=== PATIENT | male | born 1985 | race Caucasian/White ===

== ENCOUNTER 2017-12-13 11:27 | Emergency (ER) | payer OTHER ==
[~2017-12-13] VITALS: Ht 157.5 cm; Wt 112.0 kg
[~2017-12-13 11:27] MED LIST: CLON2TAB PO; SERT50TA PO
[2017-12-13 11:40] VITALS: BP 133/65
--- NOTE | 2017-12-13 11:45 | NUR ---
PT TO BED 3.
--- NOTE | 2017-12-13 11:50 | NUR ---
PATIENT PRESENTS TO ED WITH C/O DIZZINESS AND RIGHT FRONTAL/PARIETAL HEADACHE SINCE MONDAY; DENIES SYNCOPE OR LOC; PT ALSO C/O DECREASED HEARING TO RIGHT EAR HX NONE EXCEDRIN TAKEN AT 1030 WITH NO RELIEF; DENIES N/V/D; SKIN IS PINK/WARM/DRY; AAOX4 WITH EVEN AND STEADY GAIT; LUNGS CLEAR BL; HR EVEN AND REGULAR; PT DENIES ANY FEVER, CP, SOB, OR COUGH AT THIS TIME; PATIENT STATES PAIN OF 8/10 AT THIS TIME; VSS; PATIENT POSITIONED FOR COMFORT; HOB ELEVATED; BEDRAILS UP X2; BED DOWN. ER MD MADE AWARE OF PT STATUS.
--- NOTE | 2017-12-13 11:53 | NUR ---
DR PALACIOS EVALUATING AAO PT AT BEDSIDE
--- NOTE | 2017-12-13 12:05 | NUR ---
PT TAKEN OFF THE UNIT FOR CT VIA WHEEL CHAIR BY GUNITE NOZZLE OPERATOR
[2017-12-13] MEDS ORDERED: NACL 0.9% 1,000 ML IV ONE (12:10)
[2017-12-13 12:14] LABS: BASOPHILS # (AUTO) 0.2 K/uL (0.00-0.22); BASOPHILS % (AUTO) 2.3 % (0.0-2.0); EOSINOPHILS # (AUTO) 0.7 K/uL (0-0.4); EOSINOPHILS % (AUTO) 9.2 % (0.0-4.0); HEMATOCRIT 45.4 % (36-52); HEMOGLOBIN 15.1 g/dL (12.0-18.0); LYMPHOCYTES # (AUTO) 1.6 K/uL (2.0-11.5); LYMPHOCYTES % (AUTO) 21.7 % (20.5-51.1); MEAN CORPUSCULAR HEMOGLOBIN 29 pg (27-31); MEAN CORPUSCULAR HGB CONC 33 g/dL (33-37); MEAN CORPUSCULAR VOLUME 88 fL (80-94); MONOCYTES # (AUTO) 0.3 K/uL (0.8-1.0); MONOCYTES % (AUTO) 4.5 % (1.7-9.3); NEUTROPHILS # (AUTO) 4.4 K/uL (1.8-7.7); NEUTROPHILS % (AUTO) 62.3 % (42.2-75.2); PLATELET COUNT (AUTO) 203 K/uL (140-450); RED BLOOD CELL COUNT(AUTO) 5.17 MIL/uL (4.20-6.10); RED CELL DISTRIBUTION WIDTH 12.1 % (11.6-13.7); WHITE BLOOD COUNT (AUTO) 7.2 K/uL (4.8-10.8)
[2017-12-13 12:15] LABS: CARBON DIOXIDE 26.1 mmol/L (21-32); POTASSIUM 4.1 mmol/L (3.5-5.1)
[2017-12-13 12:21] LABS: ALBUMIN 3.8 g/dL (3.4-5.0); TOTAL BILIRUBIN 0.5 mg/dL (0.0-1.0)
[2017-12-13 12:23] LABS: PROTHROMBIN TIME 10.7 secs (10.8-13.4)
[2017-12-13 13:34] VITALS: BP 126/61
--- NOTE | 2017-12-13 13:34 | NUR ---
Patient discharged with v/s stable. Written and verbal after care instructions given and explained. Patient verbalized understanding. Ambulatory with steady gait. All questions addressed prior to discharge. Advised to follow up with PMD.
== END 2017-12-13 13:34 | disposition home or self-care (01) ==
LOC: MED 11:27
DX: R51 Headache (principal); F19.10 Other psychoactive substance abuse, uncomplicated; Z79.899 Other long term (current) drug therapy
CPT/HCPCS: 36415; 70450; 80053; 83880; 84484; 85025; 85610; 85730; 96360; 96361; 99285; J7030

== ENCOUNTER 2018-05-07 05:25 | Emergency (ER) | payer OTHER ==
[~2018-05-07] VITALS: Ht 188 cm; Wt 104.3 kg
[2018-05-07 05:28] VITALS: BP 139/103
--- NOTE | 2018-05-07 05:34 | NUR ---
PT TAKEN TO BED 8
--- NOTE | 2018-05-07 05:35 | NUR ---
33/M CAME IN ED, C/O SOB/CONGESTION, X1 HR. PT REPORTS SMOKING MARIJUANA 1 HR AGO. PT REPORTS PRODUCTIVE COUGH WITH WHITE MUCUS. HX PANIC ATTACKS. NKA. PT DENIES N/V/D; SKIN IS INTACT, PINK/WARM/DRY; AAOX4, PERRL, WITH EVEN AND STEADY GAIT; LUNGS CLEAR BL, BREATHING UNLABORED; HR EVEN AND REGULAR, BL PERIPHERAL PULSES PRESENT; BS ACTIVE X4, NO TENDERNESS TO PALPATION; PT DENIES ANY FEVER, CP AT THIS TIME; PT STATES 0/10 PAIN AT THIS TIME; VSS; PATIENT POSITIONED FOR COMFORT; HOB ELEVATED; BEDRAILS UP X2; BED DOWN. ER MADE AWARE.
--- NOTE | 2018-05-07 05:41 | NUR ---
Dr. Armstrong evaluating patient at bedside.
[2018-05-07 05:51] VITALS: BP 139/89
--- NOTE | 2018-05-07 05:51 | NUR ---
Patient discharged with v/s stable. Written and verbal after care instructions given and explained. Patient alert, oriented and verbalized understanding of instructions. Ambulatory with steady gait. All questions addressed prior to discharge. ID band removed. Patient advised to follow up with PMD. Rx of ATARAX 25 MG given. Patient educated on indication of medication including possible reaction and side effects. Opportunity to ask questions provided and answered.
== END 2018-05-07 05:51 | disposition home or self-care (01) ==
LOC: MED 05:25
DX: F41.9 Anxiety disorder, unspecified (principal); F12.10 Cannabis abuse, uncomplicated
CPT/HCPCS: 99284

== ENCOUNTER 2018-06-26 06:08 | Emergency (ER) | payer SELFPAY ==
[~2018-06-26] VITALS: Ht 188 cm; Wt 108.4 kg
[2018-06-26 06:11] VITALS: BP 132/64
--- NOTE | 2018-06-26 06:11 | NUR ---
TO BED # 11 AMB, REPORT GIVEN TO LAURIE CHAO
--- NOTE | 2018-06-26 06:11 | NUR ---
PT PRESENTS TO ED WITH SOAR THROAT, NON-PRODUCTIVE COUGH, BODY ACHES, AND RUNNY NOSE X1 DAY. PT IS AFEBRILE. LUNGS CLEAR BILAT. NO EXUDATE IN PHARYNX. VSS. A&OX4. POSITIONED IN BED FOR COMFORT. ER MD AWARE. CONTINUE TO MONITOR.
--- NOTE | 2018-06-26 06:20 | NUR ---
Dr. Armstrong evaluating patient at bedside.
[2018-06-26] MEDS ORDERED: KETOROLAC 60 MG/2 ML VIAL IM ONE (06:25)
[2018-06-26 06:40] VITALS: BP 132/64
--- NOTE | 2018-06-26 06:40 | NUR ---
DCPatient discharged with v/s stable. Written and verbal after care instructions given and explained. Patient alert, oriented and verbalized understanding of instructions. Ambulatory with steady gait. All questions addressed prior to discharge. ID band removed. Patient advised to follow up with PMD. Rx of Motrin and Prednisone given. Patient educated on indication of medication including possible reaction and side effects. Opportunity to ask questions provided and answered.
== END 2018-06-26 06:40 | disposition home or self-care (01) ==
LOC: MED 06:08
DX: J02.9 Acute pharyngitis, unspecified (principal); Z79.899 Other long term (current) drug therapy
CPT/HCPCS: 96372; 99283; J1885

== ENCOUNTER 2019-04-03 15:38 | Emergency (ER) | payer SELFPAY ==
--- NOTE | 2019-04-03 15:50 | NUR ---
PATIENT LEFT WITHOUT BEING SEEN BY DR. HENRY. NO FURTHER CARE PROVIDED FOR PATIENT.
--- NOTE | 2019-04-03 15:50 | NUR ---
ATTEMPTED TO CALL PT BACK FROM LOBBY, NO RESPONSE.
--- NOTE | 2019-04-03 15:54 | NUR ---
ATTEMPTED TO CALL PT BACK AGAIN, NO RESPONSE
== END 2019-04-03 15:54 | disposition left against medical advice (07) ==
LOC: MED 15:38
DX: J02.9 Acute pharyngitis, unspecified (principal); Z53.21 Procedure and treatment not carried out due to patient leaving prior to being seen by health care provider

== ENCOUNTER 2022-10-30 11:18 | Emergency (ER) | payer SELFPAY ==
[~2022-10-30] VITALS: Ht 185.4 cm; Wt 113.4 kg
[2022-10-30 11:37] VITALS: BP 132/80
[2022-10-30 11:55] LABS: BASOPHILS % (AUTO) 0.6 % (0.0-2.0); EOSINOPHILS # (AUTO) 0.2 K/uL (0-0.4); EOSINOPHILS % (AUTO) 3.5 % (0.0-4.0); HEMATOCRIT 44.3 % (36-52); HEMOGLOBIN 15.1 g/dL (12.0-18.0); LYMPHOCYTES # (AUTO) 1.8 K/uL (2.0-11.5); MEAN CORPUSCULAR HEMOGLOBIN 31 pg (27-31); MEAN CORPUSCULAR HGB CONC 34 g/dL (33-37); MEAN CORPUSCULAR VOLUME 90.4 fL (80-94); MONOCYTES # (AUTO) 0.4 K/uL (0.8-1.0); MONOCYTES % (AUTO) 8.1 % (1.7-9.3); NEUTROPHILS # (AUTO) 2.5 K/uL (1.8-7.7); NEUTROPHILS % (AUTO) 50.8 % (42.2-75.2); PLATELET COUNT (AUTO) 217 K/uL (140-450); RED BLOOD CELL COUNT(AUTO) 4.89 MIL/uL (4.20-6.10); RED CELL DISTRIBUTION WIDTH 12.3 % (11.6-13.7); WHITE BLOOD COUNT (AUTO) 4.9 K/uL (4.8-10.8)
[2022-10-30 12:24] LABS: ALBUMIN 4.3 g/dL (3.4-5.0); ANION GAP 16.3 (8-16); CARBON DIOXIDE 27.7 mmol/L (21-32); CREATININE 1.1 mg/dL (0.6-1.3); TOTAL BILIRUBIN 0.6 mg/dL (0.0-1.0)
[2022-10-30] MEDS ORDERED: OMEP40EC23 PO (13:08)
[2022-10-30] MEDS ORDERED: IBUP-2213 PO (13:08)
--- NOTE | 2022-10-30 13:34 | NUR ---
Called lobby. No answer.
--- NOTE | 2022-10-30 13:55 | NUR ---
Called to lobby no answer.
--- NOTE | 2022-10-30 13:56 | NUR ---
patient left without discharge paperwork
--- NOTE | 2022-10-30 14:44 | NUR ---
The patient's care was reviewed and supervised by [facility], RN.
== END 2022-10-30 14:17 | disposition home or self-care (01) ==
LOC: MED 11:18
DX: R10.12 Left upper quadrant pain (principal); Z79.899 Other long term (current) drug therapy
CPT/HCPCS: 36415; 80053; 83690; 85025; 99283

== ENCOUNTER 2022-11-02 18:26 | Emergency (ER) | payer SELFPAY ==
[~2022-11-02] VITALS: Ht 185.4 cm; Wt 123.8 kg
[~2022-11-02 18:26] MED LIST changes: +IBUP-2213 PO; +OMEP40EC23 PO
[2022-11-02 18:41] VITALS: BP 142/101
--- NOTE | 2022-11-02 18:58 | NUR ---
PT AMBULATED TO BED 04 WITH STEADY GAIT.
--- NOTE | 2022-11-02 19:20 | NUR ---
Patient lying in bed, A/Ox4, chest rise and fall symmetrical, no s/s of distress.
[2022-11-02] MEDS ORDERED: NAPR-1704 PO (19:28)
[2022-11-02 19:45] VITALS: BP 131/94
== END 2022-11-02 19:49 | disposition home or self-care (01) ==
LOC: MED 18:26
DX: S39.011A Strain of muscle, fascia and tendon of abdomen, initial encounter (principal); F41.9 Anxiety disorder, unspecified; Z79.899 Other long term (current) drug therapy; Z79.1 Long term (current) use of non-steroidal anti-inflammatories (NSAID); X58.XXXA Exposure to other specified factors, initial encounter; Y92.89 Other specified places as the place of occurrence of the external cause; Y93.89 Activity, other specified; Y99.8 Other external cause status
CPT/HCPCS: 99284

== ENCOUNTER 2022-11-30 23:44 | Emergency (ER) | payer SELFPAY ==
[~2022-11-30] VITALS: Ht 185.4 cm; Wt 122.5 kg
[~2022-11-30 23:44] MED LIST changes: +NAPR-1704 PO
[2022-11-30 23:49] VITALS: BP 145/70
--- NOTE | 2022-11-30 23:54 | NUR ---
to lobby a/w bed ambulatory
--- NOTE | 2022-12-01 01:18 | NUR ---
PT TAKEN TO RADIOLOGY
--- NOTE | 2022-12-01 01:21 | NUR ---
PT RETURN FROM RADIOLOGY
[2022-12-01] MEDS ORDERED: PROM118S5 PO (02:02)
[2022-12-01] MEDS ORDERED: FLUT0.0560 NS (02:02)
[2022-12-01] MEDS ORDERED: IBUP-2213 PO (02:02)
[2022-12-01 02:18] VITALS: BP 145/70
--- NOTE | 2022-12-01 02:18 | NUR ---
Patient discharged with v/s stable. Written and verbal after care instructions given and explained. Patient alert, oriented and verbalized understanding of instructions. Ambulatory with steady gait. All questions addressed prior to discharge. ID band removed. Patient advised to follow up with PMD. Rx of promethazine, ibuprofen, fluticasone given. Patient educated on indication of medication including possible reaction and side effects. Opportunity to ask questions provided and answered.
== END 2022-12-01 02:18 | disposition home or self-care (01) ==
LOC: MED 23:44
DX: J01.00 Acute maxillary sinusitis, unspecified (principal); J01.10 Acute frontal sinusitis, unspecified; B97.89 Other viral agents as the cause of diseases classified elsewhere; Z79.899 Other long term (current) drug therapy
CPT/HCPCS: 71045; 99283

== ENCOUNTER 2023-04-13 16:36 | Emergency (ER) | payer MEDICAID ==
[~2023-04-13] VITALS: Ht 185.4 cm; Wt 127.5 kg
[~2023-04-13 16:36] MED LIST changes: +BENZ200C4 PO; +FLUT0.0560 NS; +PROM118S5 PO
[2023-04-13 16:46] VITALS: BP 152/91; PULSE 84; RESP 18; TEMP 97.6
--- NOTE | 2023-04-13 19:14 | NUR ---
THIS RN NOTIFIED BY ANDERSON, AUDIOVISUAL LIBRARIAN PT WAS CALLED AT [phone] WITH NO ANSWER. PT LWBS
== END 2023-04-13 18:49 | disposition left against medical advice (07) ==
LOC: MED 16:36
DX: R10.9 Unspecified abdominal pain (principal); F10.10 Alcohol abuse, uncomplicated; Z53.21 Procedure and treatment not carried out due to patient leaving prior to being seen by health care provider
CPT/HCPCS: 99281

== ENCOUNTER 2023-09-26 12:42 | Emergency (ER) | payer SELFPAY ==
[~2023-09-26] VITALS: Ht 185.4 cm; Wt 135.2 kg
[~2023-09-26 12:42] MED LIST changes: +CLON-929 PO; -CLON2TAB PO; +LOPE1TAB14 PO
[2023-09-26 13:00] VITALS: BP 154/88; PULSE 91; RESP 18; TEMP 98.2; O2SAT 98
[2023-09-26 13:31] VITALS: O2SAT 98
[2023-09-26 13:35] LABS: APPEARANCE,URINE CLEAR (CLEAR); BILIRUBIN,URINE NEGATIVE (NEGATIVE); BLOOD, URINE NEGATIVE (NEGATIVE); COLOR,URINE YELLOW (YELLOW); LEUKOCYTE ESTERASE ,URINE NEGATIVE (NEGATIVE); NITRITE, URINE NEGATIVE (NEGATIVE); PH,URINE 6.5 (5.0-9.0); PROTEIN,URINE NEGATIVE (NEGATIVE); UGLUCOSE NEGATIVE (NEGATIVE); UROBILINOGEN,URINE 0.2 EU/dL (0.2 - 1)
[2023-09-26] MEDS ORDERED: OMEP40EC24 PO (13:45)
[2023-09-26 13:59] VITALS: BP 154/88; PULSE 91; RESP 18; TEMP 98.2; O2SAT 98
== END 2023-09-26 14:03 | disposition home or self-care (01) ==
LOC: MED 12:42
DX: K29.20 Alcoholic gastritis without bleeding (principal); F10.10 Alcohol abuse, uncomplicated; F12.90 Cannabis use, unspecified, uncomplicated; Z79.899 Other long term (current) drug therapy; Z79.1 Long term (current) use of non-steroidal anti-inflammatories (NSAID); Y90.9 Presence of alcohol in blood, level not specified
CPT/HCPCS: 81003; 99283

== ENCOUNTER 2024-01-29 13:05 | Emergency (ER) | payer SELFPAY ==
[~2024-01-29] VITALS: Ht 185.4 cm; Wt 136.1 kg
[~2024-01-29 13:05] MED LIST changes: +CLON-575 PO; -CLON-929 PO; -FLUT0.0560 NS; +FLUT16SP9 NS; +OMEP40EC24 PO
[2024-01-29 13:18] VITALS: BP 163/105; PULSE 105; RESP 18; TEMP 98.4; O2SAT 99
[2024-01-29 14:45] LABS: BASOPHILS % (AUTO) 0.9 % (0.0-2.0); EOSINOPHILS # (AUTO) 0.2 K/uL (0-0.4); EOSINOPHILS % (AUTO) 3.8 % (0.0-4.0); HEMATOCRIT 46.8 % (36-52); HEMOGLOBIN 16.4 g/dL (12.0-18.0); LYMPHOCYTES # (AUTO) 1.4 K/uL (2.0-11.5); LYMPHOCYTES % (AUTO) 28.3 % (20.5-51.1); MEAN CORPUSCULAR HEMOGLOBIN 33 pg (27-31); MEAN CORPUSCULAR HGB CONC 35 g/dL (33-37); MEAN CORPUSCULAR VOLUME 93.6 fL (80-94); MONOCYTES # (AUTO) 0.4 K/uL (0.8-1.0); MONOCYTES % (AUTO) 8.1 % (1.7-9.3); NEUTROPHILS % (AUTO) 58.9 % (42.2-75.2); PLATELET COUNT (AUTO) 187 K/uL (140-450); RED CELL DISTRIBUTION WIDTH 12.7 % (11.6-13.7)
[2024-01-29 14:57] LABS: ANION GAP 15.6 (8-16); CALCIUM 9.1 mg/dL (8.5-10.1); CARBON DIOXIDE 27.8 mmol/L (21-32); POTASSIUM 4.4 mmol/L (3.5-5.1)
[2024-01-29 14:59] LABS: ALBUMIN 4.1 g/dL (3.4-5.0); BILIRUBIN,DIRECT 0.2 mg/dL (0.0-0.3); TOTAL BILIRUBIN 0.8 mg/dL (0.0-1.0)
[2024-01-29 15:00] LABS: APPEARANCE,URINE CLEAR (CLEAR); BILIRUBIN,URINE NEGATIVE (NEGATIVE); BLOOD, URINE NEGATIVE (NEGATIVE); COLOR,URINE YELLOW (YELLOW); LEUKOCYTE ESTERASE ,URINE NEGATIVE (NEGATIVE); NITRITE, URINE NEGATIVE (NEGATIVE); PROTEIN,URINE NEGATIVE (NEGATIVE); UGLUCOSE NEGATIVE (NEGATIVE); UROBILINOGEN,URINE 0.2 EU/dL (0.2 - 1)
[2024-01-29] MEDS: ACETAMINOPHEN EXTRA STRENGTH 500 MG TAB PO ONE (15:44)
[2024-01-29] MEDS: ONDANSETRON 4 MG/2 ML VIAL IVP ONE (15:47)
[2024-01-29] MEDS: KETOROLAC 30 MG/ML VIAL IVP ONE (15:49)
[2024-01-29 17:28] VITALS: BP 151/101; PULSE 84; RESP 18; TEMP 98.4; O2SAT 96
== END 2024-01-29 17:28 | disposition home or self-care (01) ==
LOC: MED 13:05
DX: K76.0 Fatty (change of) liver, not elsewhere classified (principal); R74.01 Elevation of levels of liver transaminase levels; F10.20 Alcohol dependence, uncomplicated; E66.9 Obesity, unspecified; Z68.1 Body mass index [BMI] 19.9 or less, adult; Z79.899 Other long term (current) drug therapy; Y90.9 Presence of alcohol in blood, level not specified
CPT/HCPCS: 36415; 76705; 80048; 80076; 81003; 83690; 84484; 85025; 93005; 96374; 96375; 99285; J1885; J2405